=== PATIENT | female | born 1985 | race American Indian/Alaskan Native ===

== ENCOUNTER 2017-01-08 12:34 | Emergency (ER) | payer MEDICAID ==
[~2017-01-08] VITALS: Ht 165.1 cm; Wt 109.0 kg
[~2017-01-08 12:34] MED LIST: NITR100C56 PO
[2017-01-08 12:42] VITALS: BP 130/90
[2017-01-08] MEDS ORDERED: HYDROcodone/APAP 5/325 TABLET PO ONE (13:30)
[2017-01-08] MEDS ORDERED: DIAZEPAM 5 MG TABLET PO ONE (13:30)
[2017-01-08] MEDS ORDERED: KETOROLAC 30 MG/1 ML IM ONE (13:30)
[2017-01-08] MEDS ORDERED: DIAZEPAM 5 MG TABLET ONE ×2 (13:35→13:54)
[2017-01-08] MEDS ORDERED: KETOROLAC 30 MG/1 ML ONE (13:35)
[2017-01-08] MEDS ORDERED: HYDROcodone/APAP 5/325 TABLET ONE (13:35)
== END 2017-01-08 14:44 | disposition home or self-care (01) ==
LOC: ED 14:34
DX: S16.1XXA Strain of muscle, fascia and tendon at neck level, initial encounter (principal); G43.909 Migraine, unspecified, not intractable, without status migrainosus; X58.XXXA Exposure to other specified factors, initial encounter; Y93.89 Activity, other specified; Y92.89 Other specified places as the place of occurrence of the external cause; Y99.8 Other external cause status
CPT/HCPCS: 72050; 96372; 99284; J1885

== ENCOUNTER 2017-05-08 18:44 | Emergency (ER) | payer MEDICAID ==
[~2017-05-08] VITALS: Ht 165.1 cm; Wt 111.4 kg
[2017-05-08 18:48] VITALS: BP 147/99
== END 2017-05-08 19:45 | disposition home or self-care (01) ==
LOC: ED 19:30
DX: S90.31XA Contusion of right foot, initial encounter (principal); X58.XXXA Exposure to other specified factors, initial encounter; Y93.67 Activity, basketball; Y92.89 Other specified places as the place of occurrence of the external cause; Y99.9 Unspecified external cause status
CPT/HCPCS: 99284